=== PATIENT | female | born 1935 | race Caucasian/White ===

== ENCOUNTER 2019-10-28 11:17 | Emergency (ER) | payer MEDICARE ==
[~2019-10-28] VITALS: Ht 157.5 cm; Wt 54.4 kg
[2019-10-28 11:23] VITALS: BP 135/51
--- NOTE | 2019-10-28 11:50 | NUR ---
DR. WALTERS AT BEDSIDE
--- NOTE | 2019-10-28 11:54 | NUR ---
C/O MILD EPIGASTRIC/ABD "DISCOMFORT" X TODAY AFTER EATING BRUNO. PT STATES THAT SHE WAS TALKING WITH THE BOTTOM PAINTER OF HER [facility] ABOUT SPEAKING WITH HER NURSE [employer]VOCATE REGARDING HER DIET AND "THE NEXT THING I KNEW, AN AMBULANCE SHOWED UP." PT STATES "I DID NOT NEED THE PARAMEDICS TO BRING ME HERE, I FEEL OKAY". PT BREATHING EVEN AND UNLABORED, SPO2 96% RA, NO LABORED BREATHING NOTED. PT SKIN WARM/DRY, BUT IS PALE. PT DENIES N/V. PT ALERT AND ORIENTED TO NAME, DATE, PLACE. PT PLACED IN GOWN AND ON BEDSIDE MONITOR AT THIS TIME.
[2019-10-28] MEDS ORDERED: NACL 0.9% 1,000 ML IV ONE (12:06)
[2019-10-28] MEDS ORDERED: NACL 0.9% 500 ML IV SCH (12:06)
[2019-10-28] MEDS ORDERED: ONDANSETRON 4 MG/2 ML VIAL IVP ONE (12:10)
[2019-10-28] MEDS ORDERED: PANTOPRAZOLE 40 MG INJ VIAL IVP ONE (12:10)
[2019-10-28] MEDS ORDERED: FAMOTIDINE 20 MG/2 ML VIAL IVP ONE (12:10)
--- NOTE | 2019-10-28 12:10 | NUR ---
DR. WALTERS AT BEDSIDE
[2019-10-28 12:57] LABS: APPEARANCE,URINE CLEAR (CLEAR); BILIRUBIN,URINE NEGATIVE (NEGATIVE); BLOOD, URINE NEGATIVE (NEGATIVE); COLOR,URINE YELLOW (YELLOW); LEUKOCYTE ESTERASE ,URINE NEGATIVE (NEGATIVE); NITRITE, URINE NEGATIVE (NEGATIVE); UGLUCOSE NEGATIVE (NEGATIVE)
[2019-10-28 13:02] LABS: PROTHROMBIN TIME 10.4 secs (10.8-13.4)
[2019-10-28 13:03] LABS: RBC,URINE 0-5 /HPF (0-5); WBC,URINE 0-5 /HPF (0-5)
[2019-10-28 13:10] LABS: BASOPHILS # (AUTO) 0.1 K/uL (0.00-0.22); BASOPHILS % (AUTO) 1.3 % (0.0-2.0); EOSINOPHILS % (AUTO) 0.5 % (0.0-4.0); LYMPHOCYTES # (AUTO) 1.1 K/uL (2.5-16.5); LYMPHOCYTES % (AUTO) 18.3 % (20.5-51.1); MEAN CORPUSCULAR HEMOGLOBIN 24 pg (27-31); MEAN CORPUSCULAR HGB CONC 31 g/dL (33-37); MEAN CORPUSCULAR VOLUME 75.4 fL (80-94); MONOCYTES # (AUTO) 0.5 K/uL (0.8-1.0); MONOCYTES % (AUTO) 7.8 % (1.7-9.3); NEUTROPHILS # (AUTO) 4.3 K/uL (1.8-7.7); NEUTROPHILS % (AUTO) 72.1 % (42.2-75.2); PLATELET COUNT (AUTO) 485 K/uL (140-450); RED BLOOD CELL COUNT(AUTO) 2.06 MIL/uL (4.20-5.40); RED CELL DISTRIBUTION WIDTH 19.2 % (11.6-13.7)
--- NOTE | 2019-10-28 13:20 | NUR ---
PT RESTING IN BED, NO NEW NEEDS/REQUESTS AT THIS TIME
[2019-10-28 14:00] LABS: HEMOGLOBIN 4.8 g/dL (12.0-16.0)
--- NOTE | 2019-10-28 14:00 | NUR ---
PT RESTING IN BED, NO NEW NEEDS AT THIS TIME
[2019-10-28 14:01] LABS: HEMATOCRIT 15.5 % (36-48)
--- NOTE | 2019-10-28 14:33 | NUR ---
PT REFUSING BLOOD TX & CT SCAN
[2019-10-28 14:45] LABS: CHLORIDE 107 mmol/L (98-107); POTASSIUM 3.7 mmol/L (3.5-5.1); SODIUM SERUM 141 mmol/L (136-145)
[2019-10-28 14:46] LABS: ALBUMIN 3.1 g/dL (3.4-5.0); ASPARTATE AMINOTRANSFERASE 19 U/L (15-37); CARBON DIOXIDE 18.7 mmol/L (21-32); CREATININE 1.3 mg/dL (0.6-1.3); GLUCOSE 140 mg/dL (74-106); TOTAL BILIRUBIN 0.2 mg/dL (0.0-1.0); UREA NITROGEN, BLOOD 24 mg/dL (7-18)
[2019-10-28 15:03] LABS: MAGNESIUM 2.1 mg/dL (1.8-2.4)
[2019-10-28 15:32] VITALS: BP 110/51
--- NOTE | 2019-10-28 15:32 | NUR ---
Patient does not wish to proceed with medical care recommended by DR. WALTERS. Patient given information related to possible complications, up to and including , which could occur as a result of leaving hospital at this time. Patient verbalizes understanding of risks involved leaving against medical advice. Patient has signed AMA form.
--- NOTE | 2019-10-28 15:39 | NUR ---
PT STATES SHE WOULD LIKE TO TAKE A CAB HOME, SHE WILL COVER HER OWN EXPENSE
== END 2019-10-28 15:39 | disposition left against medical advice (07) ==
LOC: MED 11:17
DX: R07.89 Other chest pain (principal); R10.13 Epigastric pain; R06.02 Shortness of breath; J81.0 Acute pulmonary edema; D53.9 Nutritional anemia, unspecified; I10 Essential (primary) hypertension; Z91.14 Patient's other noncompliance with medication regimen
CPT/HCPCS: 36415; 71045; 80053; 81001; 82150; 82977; 83690; 83735; 83880; 84484; 85025; 85610; 85730; 86886; 86900; 86901; 93005; 96374; 96375; 99284; C9113; J2405; J3490; J7030; Q0092

== ENCOUNTER 2020-05-09 23:10 | Emergency (ER) | payer MEDICARE ==
[~2020-05-09] VITALS: Ht 154.9 cm; Wt 52.2 kg
[2020-05-09 23:18] VITALS: BP 144/68
--- NOTE | 2020-05-09 23:21 | NUR ---
84 YO F BIBA FROM HOME FOR C/C OF LACERATION ON TOP OF HER HEAD. PT STATES A LAMP FELL ON HER HEAD WHEN SHE WAS ATTEMPTING TO CHNAGE A LIGHTBULB. LAC IS ABOUT 1 INCH LONG, WITH MINIMAL BLEEDING. PT STATES SHE IS IN NO PAIN AND DENIES NEED FOR PAIN MEDICATION. PT STATES SHE LIVES ALONE. DENIES MED HX DENIES RX NKA
--- NOTE | 2020-05-09 23:21 | NUR ---
PT TAKEN TO BED 06 VIA RNEY.
--- NOTE | 2020-05-10 | NUR ---
ERMD REPAIRED LAC WITH STAPLE CLOSURE.
--- NOTE | 2020-05-10 00:57 | NUR ---
PT DISCHARGED BUT SLEEPING IN BED COMFORTABLY WHILE WE CALL FOR A [facility] HOME.
--- NOTE | 2020-05-10 01:30 | NUR ---
STILL UNABLE TO REACH [facility]. WILL CONTINUE TO CALL. PT PROVIDED WITH MEAL AND BLANKET. ALL PT NEEDS MET.
--- NOTE | 2020-05-10 02:30 | NUR ---
STILL UNABLE TO REACH [employer] SERVICE. WILL CONTINUE TO CALL.
--- NOTE | 2020-05-10 04:00 | NUR ---
STILL UNABLE TO REACH [employer] SERVICE. WILL CONTINUE TO CALL.
[2020-05-10 05:45] VITALS: BP 144/68
--- NOTE | 2020-05-10 05:45 | NUR ---
Patient discharged with v/s stable. Written and verbal after care instructions given and explained. Patient verbalized understanding. Ambulatory with steady gait. All questions addressed prior to discharge. Advised to follow up with PMD.
== END 2020-05-10 05:45 | disposition home or self-care (01) ==
LOC: MED 23:10
DX: S01.01XA Laceration without foreign body of scalp, initial encounter (principal); I10 Essential (primary) hypertension; W22.8XXA Striking against or struck by other objects, initial encounter; Y93.89 Activity, other specified; Y92.89 Other specified places as the place of occurrence of the external cause; Y99.8 Other external cause status
CPT/HCPCS: 12001; 90471; 90715; 99283